=== PATIENT | male | born 1980 | race Caucasian/White ===

== ENCOUNTER 2020-07-01 18:15 | Emergency (ER) | payer MEDICAID ==
[~2020-07-01] VITALS: Ht 177.8 cm; Wt 85.0 kg
[~2020-07-01 18:15] MED LIST: LIDOcaine 1% W/epiNEPHrine 1:200,000 10ml vial ONE
--- NOTE | 2020-07-01 18:53 | NUR ---
STEFF JACKSON COFIRMED PATIENT REPORTED INCIDENT CASE # [id number]
[2020-07-01] MEDS ORDERED: TETanus/Pertussis (Acell)/Diphther VAC/PF (Tdap-Adult) 0.5ml syringe IMVAC ONE (18:55)
--- NOTE | 2020-07-01 19:32 | NUR ---
SOLANGE RIVERA AT BEDSIDE FOR LACERATION REPAIR.
[2020-07-01] MEDS ORDERED: CEPH-572 PO (20:07)
[2020-07-01 20:21] VITALS: BP 138/83
== END 2020-07-01 20:23 | disposition home or self-care (01) ==
LOC: ER 18:16
DX: S61.412A Laceration without foreign body of left hand, initial encounter (principal); F12.10 Cannabis abuse, uncomplicated; F15.10 Other stimulant abuse, uncomplicated; Y04.0XXA Assault by unarmed brawl or fight, initial encounter; Y93.89 Activity, other specified; Y92.89 Other specified places as the place of occurrence of the external cause; Y99.8 Other external cause status
CPT/HCPCS: 12001; 71045; 73130; 99284